=== PATIENT | female | born 1945 | race Two or more races ===

== ENCOUNTER → 2025-10-07 | Emergency (ER) | payer OTHER ==
[~2025-10-07] VITALS: Ht 157.5 cm; Wt 50.8 kg
[~2025-10-07] MED LIST: BISOPROLOL-HCT1 EACH PO; JARDIANCE10 MG PO; NORFLEX100MG PO; ORPHENADRINE CITRATE 30 MG/ML AMPUL IM ONE; TOUJEO MAX300 UNIT/1 SQ; TRAMADOL HCL 50 MG TABLET PO ONE
== END | disposition home or self-care (01) ==
LOC: ER 12:04
DX: M54.31 Sciatica, right side (principal); I10 Essential (primary) hypertension; I11.9 Hypertensive heart disease without heart failure; E11.9 Type 2 diabetes mellitus without complications; Z79.4 Long term (current) use of insulin
CPT/HCPCS: 72100; 73502; 96372; 99283; J2360